=== PATIENT | female | born 1975 | race Caucasian/White ===

== ENCOUNTER 2021-12-02 14:59 | Outpatient (REF) | payer OTHER, SELFPAY ==
[2021-12-02 16:36] LABS: Syphilis Screen Nonreactive (Nonreactive)
[2021-12-03 05:17] LABS: HBc Num1 0.13 S/CO (0.00-0.79); HIV AB/AG Nonreactive (Nonreactive); HIV Num 1 0.07 S/CO (0.00-0.99); Hepatitis B Core Antibody Nonreactive (Nonreactive); ~HepC Num1 0.12 S/CO (0.00-0.79); ~Hepatitis C Antibody Nonreactive (Nonreactive)
[2021-12-03 06:23] LABS: CT PCR NOT DETECTED (Not Detect.); NG PCR NOT DETECTED (Not Detect.)
[2021-12-05 12:02] LABS: HPV mRNA E6/E7 rflx Not Detected (Not Detected)
== END 2021-12-02 15:00 | disposition home or self-care (01) ==
LOC: HO.LAB 14:59
PROVIDERS: Visit Provider Advanced Practice Midwife
DX: Z01.419 Encounter for gynecological examination (general) (routine) without abnormal findings (principal); Z20.2 Contact with and (suspected) exposure to infections with a predominantly sexual mode of transmission
CPT/HCPCS: 86704; 86780; 86803; 87389; 87491; 87591; 87624; 88142

== ENCOUNTER → 2022-02-22 13:32 | Outpatient (BNVA) | payer OTHER, SELFPAY | PROVIDERS: PCP Family Medicine; Visit Provider Dietitian, Registered | DX: E66.9 Obesity, unspecified (principal) | CPT/HCPCS: 97802 ==

== ENCOUNTER → 2023-03-07 09:53 | Outpatient (BNVA) | payer OTHER, SELFPAY | PROVIDERS: PCP Family Medicine; Visit Provider Physician Assistant ==

== ENCOUNTER 2023-03-23 15:03 | Outpatient (AMB) | payer OTHER, SELFPAY ==
--- NOTE | 2023-03-23 15:09 | A.OFFVIS_ITS ---
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 She heard about our program from her sister. Her goal is to lose weight and achieve a healthy lifestyle as well as to improve, if not resolve, obesity related medical conditions, including possible sleep apnea. She reports first being concerned about her weight 5 years, highest weight to date was 247. Current weight is 247.2 pounds with a BMI of 39.9. She has tried multiple methods of weight loss including fad diets without permanent results. She lives with her mom, alysia and two kids. 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 She states that she is scheduled for a sleep study through [facility] on 04/11/2023 She wakes at:?6 am, and goes to bed at?10 pm. Dinner is at 6 pm. Breakfast: coffee, milk/cream/sugar AM snack: granola bar, candy, chocolate, gummy bears Lunch: fast food PM snack: same as am snack Dinner: rice and beans, chicken or pork, or fast food After dinner: ice cream, cookies, Other snacks: as above Liquids: 30-40 oz water daily, 20 oz diet coke 3-4 days per week, no juice Alcohol/marijuana/tobacco intake: none Exercise: none, has gym membership at [facility] GERD score: 15 DEREK score: 7 ESS score: 21 QOL score: 98 [facility] Medical History Acid reflux Migraine headache Obesity Asthma Surgical History Hx laparoscopic cholecystectomy Family History Mother Liver cancer Hypertension Maternal Grandmother Hypertension Diabetes Social History Patient Tobacco Use Status: Never used Tobacco Current occupational status: employed 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 [employer] Female Reproductive History Menstrual Age of Menarche: 17 Review of Systems Const All systems reviewed & are unremarkable except as noted in HPI and below Physical Exam Vital Signs: Last Vital Signs Temp 96.7 F L 03/23/23 15:15 Pulse 93 03/23/23 15:15 BP 145/81 H 03/23/23 15:15 Pulse Ox 93 03/23/23 15:15 Oxygen Delivery Method Room Air 03/23/23 15:15 BMI result Body Mass Index 39.9 Const General: cooperative, healthy appearing and no acute distress Orientation/consciousness: patient oriented x3 HEENT Head: Yes normal to inspection Ears: hearing grossly normal bilaterally General nose exam: Normal external nose present Face and sinus: Yes normal facial exam Eyes General: appearance normal, both eyes and all related structures Resp Effort & Inspection: normal respiratory effort Auscultation: clear to auscultation bilaterally Cardio Rate: regular rate Rhythm: regular rhythm Heart sounds: S1 normal heart sound present and S2 normal heart sound present GI Inspection: Yes normal to inspection, No distended and Yes obesity Palpation (GI): Soft to palpation, nontender and no guarding Auscultation: normal bowel sounds Skin General skin exam: no rashes or lesions noted Neuro General: patient oriented x3 Extrem General: Yes edema (trace) Psych Appearance: grossly normal Mental Status: mental status grossly normal Speech and movement: Normal speech and movement present Affect: normal affect Attitude: cooperative Assessment & Plan Assessment & Plan (1) Obesity (BMI 35.0-39.9 without comorbidity): Code(s): E66.9 - Obesity, unspecified Plan: This is a?47 yo female who will start our SWL program to prepare for bariatric surgery.? Blood work, h pylori , CXR, ECG, Abd US and UGI have been ordered. She is being scheduled for RD and BH initial consultations. She will start SWL classes and watch the first three videos before her next appointment. ? Adequate sleep of 7-8 hours per night discussed, awakening at 6 am and going to bed at 10 pm ? Purchase body composition analyzer scale (Renpho recommended) and check weight weekly. The best time to do this is first thing in the morning after going to the bathroom. 1. Nutritional counseling: Be sure to careful read the number of scoops per shake Start with 2 Celebrate Rebuild shakes ([facility] [employer], [employer], [employer]) First shake (2 scoops in 16 oz unsweetened almond milk) at 7am-9am, Second shake (1.5 scoops in 16 oz unsweetened almond milk) at 10am-12pm 2 protein bars (uMentionedebrate bars at [facility] [employer], [employer], [employer]) First bar at 2pm-4pm. Dinner at 6pm (9 forks of protein and 9 forks of salad/vegetables). Meal to include lean meat (beef, fish, pork, turkey, chicken), cooked vegetables or a salad with olive oil and/or fruits (berries, pears, apples, kiwi). Avoid salt, breads, potatoes, rice, pasta, desserts. Another bar at 7pm-9pm. Try to drink 64 oz of water daily and avoid soda and juices. ?2. Each shake would be drunk slowly, like coffee in a period of 2 hours. ?3. Cut each bar in 4 pieces and eat each piece in 30 min ?to make each bar last 2 hours. ?4. I emphasized the importance of measuring accurately the food portion and measure it carefully when serving the food on the plate ?5. The meal portions include 9 full-size forks of meat and 9 full-size forks of salad. You always eat the meat portion but you can replace up to half of the forks of salad/vegetables with rice, potatoes or pasta, or a fruit ?if you like. The less you do it the better weight loss will be. ?6. One full-size fork is what can be scooped on the fork without falling aside and not what can be bit with the fork. Use regular forks like those you find in a typical restaurant. ?7.? Please send me weight measurements as soon as possible and then once a week. Always include your diet and exercise plan. Alternatively come weekly at the office for weight checks and send me the measurements. ?8. Exercise counseling: Begin by watching a stretching for beginners video. Start slowly and begin to stretch your muscles. You should do this before and after each exercise session to prevent injury. Please return to [facility] gym near your home. Ask the manager of training and development or one of the trainers how to use the machines if you are unfamiliar with them. Start elliptical with a resistance of 2. Increase resistance by 1 every 3 min to your most comfortable resistance with a max resistance of 8. Reduce the resistance by 1 every 3 minutes back down to 2 and repeat cycles for 300 calories. Alternatively, start treadmill with a speed of 3.0 and incline of 0, increasing incline by 1 every 3 minutes to the highest comfortable level (max 6 for now) then decrease in the same fashion. Repeat process to a goal of 300 calories. Goal of 2000 calories burned or more weekly. You may also consider use of the stationary bike. The easiest would be to chose the fat-burn or interval training program on the machine and do this until you reach the 300 calorie goal. Alternatively, you can manually adjust the resistance in a similar fashion as mentioned above, (resistance of 2-8 with a goal speed of 12 mph). Tracking calories is essential. 9. Alternatively start walking outside daily, tracking calories with a goal of 300 calories per day, daily. You can download the gabi [employer] which can track your time, distance and calories while walking outside. You press start in the gabi when you start and then stop when you are finished. 10.? It is important to avoid for at least 18 months postoperatively and it has been discussed at the information session 11. Please get labs, EKG and chest X-Ray within 1 week. 12. Discussed and answered all questions regarding?obtained consent to participate in the [facility]Registry. 13. Please follow the diet plan exactly, without any change. If you do not like something about the plan or you feel hungry, you need to communicate with me so I can help you revise the plan. You should not change the plan yourself. Text me at [phone] 14. Goal is to lose at least 12 pounds in the first month 15. Goal is to lose 10% of your weight before surgery, which is about 24 lbs. Ultimate weight goal: 223 lbs before surgery 16. Please be sure to have your sleep study sent to our office, the fax number is [phone] Patient is morbidly obese and is not considered stable at this time.?I spent a total of 70 minutes reviewing/updating records, examining the patient and counseling the patient on weight management as detailed above. Orders: Orders Insulin Today E66.9 - Obesity, unspecified Hemoglobin A1c Today E66.9 - Obesity, unspecified Comprehensive Met. Panel Today E66.9 - Obesity, unspecified Vitamin B12 and Folate Today E66.9 - Obesity, unspecified Zinc Today E66.9 - Obesity, unspecified C Reactive Protein Today E66.9 - Obesity, unspecified Vitamin B1 Today E66.9 - Obesity, unspecified Vitamin A Today E66.9 - Obesity, unspecified TSH reflex Free T4 Today E66.9 - Obesity, unspecified US abdomen comp w elastography Today E66.9 - Obesity, unspecified H Pylori Breath Test Today E66.9 - Obesity, unspecified Complete Blood Count Auto Diff Today E66.9 - Obesity, unspecified Lipid Panel Today E66.9 - Obesity, unspecified IRON PROFILE Today E66.9 - Obesity, unspecified Ferritin Today E66.9 - Obesity, unspecified Vitamin D 25-OH Total Today E66.9 - Obesity, unspecified XR chest 2V Today E66.9 - Obesity, unspecified ECG 12 lead EKG Today E66.9 - Obesity, unspecified FL upper GI w air Today E66.9 - Obesity, unspecified Referrals Nutrition/Dietitian Referral E66.9 - Obesity, unspecified Behavioral Health Referral E66.9 - Obesity, unspecified Coding Level of Care Code New Pt Level 5 (76007) Diagnoses Obesity (BMI 35.0-39.9 without comorbidity) E66.9 Time Spent (min) 70
[2023-03-23 15:15] VITALS: BP 145/81; PULSE 93; TEMP 35.9; O2SAT 93; BMI 39.9
== END 2023-03-23 16:38 | disposition home or self-care (01) ==
PROVIDERS: PCP Family Medicine; Visit Provider Physician Assistant Surgical
DX: E66.9 Obesity, unspecified (principal); Z68.39 Body mass index [BMI] 39.0-39.9, adult
CPT/HCPCS: 99205

== ENCOUNTER → 2023-03-23 15:03 | Outpatient (BNVA) | payer OTHER, SELFPAY | PROVIDERS: PCP Family Medicine; Visit Provider Physician Assistant Surgical ==

== ENCOUNTER 2023-04-18 15:04 | Outpatient (AMB) | payer OTHER, SELFPAY ==
--- NOTE | 2023-04-18 15:40 | A.OFFWM_ITS ---
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 She reported that she does not feel comfortable, easily fatigued, sleep is poor. She is currently not in therapy but was years ago during her divorce did not find it very helpful. Pt has no history of problems with drugs or alcohol. She has no history of inpatient psychiatric admissions. Pt reported history of depression and anxiety also being on medication for them in the past. Presenting Concerns Referral Source provider Reason for referral weight loss surgery evaluation Precipitating Event obesity Living Situation Current Living Situation Own At risk of losing current housing? No Satisfied with current living situation? Yes Comments Pt lives in her own home, her mother is there with her, 27, 26, 25, 19 year old niece lives there as well. Food/Weight/Diet Expectations of change weight loss and maintenance History/Relationship with food Pt stated that she eats when she is happy and also when she is sad. She reported that she loves sweets , ice cream, soda, fast food, taco river or [employer] for lunch, dinner would be [place] food. Often would overeat, feel uncomfortably full, eating again after she had just eat, eat two dinners. History/Relationship with weight She reported that she has gained 50 lbs over the past 5 years. History/Relationship with dieting keto, low carb Binge Eating Do you frequently eat large amounts of food in short periods of time, not feeling physically hungry? No Do you feel out of control when you eat a large amount of food in a short period of time? Yes Do you eat large amounts of food rapidly and typically alone? Yes Night Eating Do you wake up at least once during the night to eat? No If you wake up in the night, do you find that it is necessary to eat something in order to fall back asleep? No Do you have little or no appetite in the morning and feel very hungry in the evening, often overeating between dinner and when you go to bed? No Social History Family history and relationship Patient when her kid were 5, 2, and 3 a nd she has been since 2016. 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 Developmental history and status no issues Social support family Community support nondenominational Muslim/Spirituality Mormon Cultural/Ethnic information Legal Involvement and History Current or historical involvement with the legal system? none Education Highest grade completed 8th grade then GED then MA certification Preferred learning style Auditory, Verbal, Written, Learn by doing and Visual Currently enrolled in educational program? No Interested in further educational program? 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 No Financial Situation Financial assistance? None Service Service? No Mental Health and Addiction Treatment Current/Past substance abuse? No Current/Past addictive behavior concerns? No Medical and Physical Health Summary Physical exam in the last year? Yes Pain Screening Current pain? Yes Pain in the last few months? No Medications Is the patient compliant with medications? Yes Does the patient have Brock Guardian in place? Not applicable Does the patient use complimentary health approaches? No Trauma/Abuse History History of trauma? Yes Questionnaires PHQ-9 Over the last 2 weeks, how often have you been bothered by any of the following problems? 1. Little interest or pleasure in doing things: more than half the days 2. Feeling down, depressed, or hopeless: more than half the days 3. Trouble falling or staying asleep, or sleeping too much: nearly every day 4. Feeling tired or having little energy: nearly every day 5. Poor appetite or overeating: nearly every day 6. Feeling bad about yourself - or that you are a failure or have let yourself or your family down: more than half the days 7. Trouble concentrating on things, such as reading the newspaper or watching television: several days 8. Moving or speaking so slowly that other people could have noticed. Or the opposite - being so fidgety or restless that you have been moving around a lot more than usual: not at all 9. Thoughts that you would be better off or of hurting yourself in some way: not at all Total score: 16 Depression Screening Interpretation: Positive Depression Screening Done: Yes Source: Developed by Drs. Marcelino Pope, Oly Rogers, Elias More and colleagues, with an educational kami from [email or web address]. Binge Eating Scale Group 1 A. I don't feel self-conscious about my wt. or body size when I'm with others. B. I feel concerned about how I look to others, but it normally does not make me fell disappointed with myself C. I do get self-conscious about my appearance and wt. which makes me feel disappointed in myself. D. I feel very self-conscious about my wt. and frequently I feel intense shame and disgust for myself. I try to avoid social contacts because of my self- consciousness. Response Group 1: C Group 2 A. I don't have any difficulty eating slowly in the proper manner. B. Although I seem to gobble down foods, I don't end up feeling stuffed because of eating to much. C. At times, I tend to eat quickly and then, I feel uncomfortably full afterwards. D. I have the habit of bolting down my food, without really chewing it. When this happens I usually feel uncomfortably stuffed because I've eaten to much. Response Group 2: C Group 3 A. I feel capable to control my eating urges when I want to. B. I feel like I have failed to control my eating more than the average person. C. I feel utterly helpless when it comes to feeling in control of my eating urges. D. Because I feel so helpless about controlling my eating I have become very desperate about trying to get control. Response Group 3: B Group 4 A. I don't have the habit of eating when I'm bored. B. I sometimes eat when I'm bored, but often I'm able to get busy and get my mind off food. C. I have a regular habit of eating when I'm bored, but occasionally, I can use some other activity to get my mind off eating. D. I have a strong habit of eating when I'm bored. Nothing seems to help me breath the habit. Response Group 4: C Group 5 A. I'm usually physically hungry when I eat something. B. Occasionally, I eat something on impulse even though I really am not hungry. C. I have the regular habit of eating foods, that I might not really enjoy, to satisfy a hungry feeling even though physically, I don't need the food. D. Although I'm not physically hungry, I get a hungry feeling in my mouth that only seems to be satisfied when I eat a food, like sandwich, that fills my mouth. Sometimes, when I eat the food to satisfy my mouth hunger, I then spit the food out so I won't gain weight. Response Group 5: B Group 6 A. I don't feel any guilt or self-hate after I overeat. B. After I overeat, occasionally I feel guilt or self-hate. C. Almost all the time I experience strong guilt or self-hate after I overeat. Response Group 6: C Group 7 A. I don't lose total control of my eating when dieting even after periods when I overeat. B. Sometimes when I eat a forbidden food on a diet, I feel like I blew it and eat even more. C. Frequently, I have the habit of saying to myself, I've blown it now, why not go all the way, when I overeat on a diet. When that happens I eat more. D. I have a regular habit of starting a strict diets for myself but I break the diets by going on an eating binge. My life seems to be either a feast or famine. Response Group 7: C Group 8 A. I rarely eat so much food that I feel uncomfortably stuffed afterwards. B. Usually about once a month, I each such a quantity of food, I end up feeling very stuffed. C. I have regular periods during the month when I eat large amounts of food, either at mealtime or at snacks. D. I eat so much food that I regularly feel quite uncomfortable after eating and sometimes a bit nauseous. Response Group 8: C Group 9 A. My level of calorie intake does not go up very high or go down very low on a regular basis. B. Sometimes after I overeat, I will try to reduce my caloric intake to almost nothing to compensate for the excess calories I've eaten. C. I have a regular habit of overeating during the night. It seems that my routine is not to be hungry in the morning but overeat in the evening. D. In my adult years, I have had week-long periods where I practically starve myself. This follows periods when I overeat. It seems I live a life of either feast or famine. Response Group 9: A Group 10 A. I usually am able to stop eating when I want to. I know when enough is enough. B. Every so often, I experience a compulsion to eat which I can't seem to control. C. Frequently, I experience strong urges to eat which I seem unable to control, but at other times I can control my eating urges. D. I feel incapable of controlling urges to eat. I have a fear of not being able to stop eating voluntarily. Response Group 10: A Group 11 A. I don't have any problem stopping eating when I feel full. B. I usually can stop eating when I feel full but occasionally overeat leaving me feeling uncomfortably stuffed. C. I have a problem stopping eating once I start and usually I feel uncomfortably stuffed after I eat a meal. D. Because I have a problem not being able to stop eating when I want, I sometimes have to induce vomiting to relieve my stuffed feeling. Response Group 11: B Group 12 A. I seem to eat just as much when I'm with others, Family social gatherings as when I'm by myself. B. Sometimes, when I'm with other persons, I don't eat as much as I want to eat because I'm self-conscious about my eating. C. Frequently, I eat only a small amount of food when others are present, because I'm very embarrassed about my eating. D. I feel so ashamed about overeating that I pick times to overeat when I know no one will see me. I feel like a closet eater. Response Group 12: B Group 13 A. I eat three meals a day with only an occasional between meal snack. B. I eat 3 meals a day, but I also normally snack between meals. C. When I am snacking heavily, I get in the habit of skipping regular meals. D. There are regular periods when I seem to be continually eating, with no planned meals. Response Group 13: B Group 14 A. I don't think much about trying to control unwanted eating urges. B. At least some of the time, I feel my thoughts are pre-occupied with trying to control my eating urges. C. I feel that frequently I spend much time thinking about how much I ate or about trying not to eat anymore. D. It seems to me that most of my waking hours are pre-occupied by thoughts about eating or not eating. I feel like I'm constantly struggling not to eat. Response Group 14: B Group 15 A. I don't think about food a great deal. B. I have strong craving for food but they last only for brief periods of time. C. I have days when I can't seem to think about anything else but food. D. Most of my days seem to be pre-occupied with thoughts about food. I feel like I live to eat. Response Group 15: B Group 16 A. I usually know whether or not I'm physically hungry. I take the right portion of food to satisfy me. B. Occasionally, I feel uncertain about knowing whether or not I'm physically hungry. A these times it's hard to know how much food I should take to satisfy me. C. Even though I might know how many calories I should eat, I don't have any idea what is a normal amount of food for me. Response Group 16: C Binge Eating Score: 21 Score less than 17 Minimal Risk Score between 18-26 Moderate Risk Score between 27-46 High Risk Assessment & Plan Assessment & Plan (1) Depression, unspecified: Code(s): F32.A - Depression, unspecified (2) Obesity (BMI 35.0-39.9 without comorbidity): Code(s): E66.9 - Obesity, unspecified Plan Patient reported symptoms of depressions and emotional eating. depression is compounded by her weight issues, also suppressed emotions/unresolved trauma. She would like to be seen again. Coding Level of Care Code Tele [facility] Dia Anne ([id number]) Diagnoses Depression, unspecified F32.A Obesity (BMI 35.0-39.9 without comorbidity) E66.9 Time Spent (min) 45
== END 2023-04-18 16:24 | disposition home or self-care (01) ==
PROVIDERS: PCP Family Medicine; Visit Provider Counselor Mental Health
DX: F32.A Depression, unspecified (principal); E66.9 Obesity, unspecified
CPT/HCPCS: 90791

== ENCOUNTER → 2023-04-18 15:04 | Outpatient (BNVA) | payer OTHER, SELFPAY | PROVIDERS: PCP Family Medicine; Visit Provider Counselor Mental Health ==

== ENCOUNTER 2023-05-09 11:17 | Outpatient (AMB) | payer OTHER, SELFPAY ==
--- NOTE | 2023-05-09 11:59 | A.OFFWM_ITS ---
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 Pt is looking to have weight loss surgery, to help improve her health and quality of life. She reported that she does not feel comfortable, easily fatigued, sleep is poor. She is currently not in therapy but was years ago during her divorce did not find it very helpful. Pt has no history of problems with drugs or alcohol. She has no history of inpatient psychiatric admissions. Pt reported history of depression and anxiety also being on medication for them in the past. Presenting Concerns Referral Source provider Reason for referral weight loss surgery evaluation Precipitating Event obesity Living Situation Current Living Situation Own At risk of losing current housing? No Satisfied with current living situation? Yes Comments Pt lives in her own home, her mother is there with her, 27, 26, 25, 19 year old niece lives there as well. Food/Weight/Diet Expectations of change weight loss and maintenance History/Relationship with food Pt stated that she eats when she is happy and also when she is sad. She reported that she loves sweets , ice cream, soda, fast food, taco river or Tuttle's for lunch, dinner would be [place]wana food. Often would overeat, feel uncomfortably full, eating again after she had just eat, eat two dinners. History/Relationship with weight She reported that she has gained 50 lbs over the past 5 years. History/Relationship with dieting keto, low carb Binge Eating Do you frequently eat large amounts of food in short periods of time, not feeling physically hungry? No Do you feel out of control when you eat a large amount of food in a short period of time? Yes Do you eat large amounts of food rapidly and typically alone? Yes Night Eating Do you wake up at least once during the night to eat? No If you wake up in the night, do you find that it is necessary to eat something in order to fall back asleep? No Do you have little or no appetite in the morning and feel very hungry in the evening, often overeating between dinner and when you go to bed? No Social History Family history and relationship Patient when her kid were 5, 2, and 3 and she has been since 2016. Parental/Familial home school teacher obligations her mother lives with her. Developmental history and status no issues Social support family Community support jehovah's witness Lutheran/Spirituality Catholic Cultural/Ethnic information Legal Involvement and History Current or historical involvement with the legal system? none Education0 Highest grade completed 8th grade then GED then MA certification Preferred learning style Auditory, Verbal, Written, Learn by doing and Visual Currently enrolled in educational program? No Interested in further educational program? 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 No Financial Situation Financial assistance? None Service Service? No Mental Health and Addiction Treatment Current/Past substance abuse? No Current/Past addictive behavior concerns? No Medical and Physical Health Summary Physical exam in the last year? Yes Pain Screening Current pain? Yes Pain in the last few months? No Medications Is the patient compliant with medications? Yes Does the patient have Brock Guardian in place? Not applicable Does the patient use complimentary health approaches? No Trauma/Abuse History History of trauma? Yes Questionnaires PHQ-9 Over the last 2 weeks, how often have you been bothered by any of the following problems? 1. Little interest or pleasure in doing things: nearly every day 2. Feeling down, depressed, or hopeless: more than half the days 3. Trouble falling or staying asleep, or sleeping too much: nearly every day 4. Feeling tired or having little energy: nearly every day 5. Poor appetite or overeating: several days 6. Feeling bad about yourself - or that you are a failure or have let yourself or your family down: nearly every day 7. Trouble concentrating on things, such as reading the newspaper or watching television: more than half the days 8. Moving or speaking so slowly that other people could have noticed. Or the opposite - being so fidgety or restless that you have been moving around a lot more than usual: several days 9. Thoughts that you would be better off or of hurting yourself in some way: not at all Total score: 18 Source: Developed by Drs. Marcelino Pope, Oly Rogers, Elias More and colleagues, with an educational kami from [employer]. Assessment & Plan Assessment & Plan (1) Depression, unspecified: Code(s): F32.A - Depression, unspecified (2) Obesity (BMI 35.0-39.9 without comorbidity): Code(s): E66.9 - Obesity, unspecified Plan Patient reported symptoms of depressions and emotional eating. depression is compounded by her weight issues, also suppressed emotions/unresolved trauma. She would like to be seen again. Coding Level of Care Code Tele Psytx 45 mins (19907) Diagnoses Depression, unspecified F32.A Obesity (BMI 35.0-39.9 without comorbidity) E66.9 Time Spent (min) 40
== END 2023-05-21 15:34 | disposition home or self-care (01) ==
PROVIDERS: PCP Family Medicine; Visit Provider Counselor Mental Health
DX: F32.A Depression, unspecified (principal); E66.9 Obesity, unspecified
CPT/HCPCS: 90834

== ENCOUNTER → 2023-05-09 11:17 | Outpatient (BNVA) | payer OTHER, SELFPAY | PROVIDERS: PCP Family Medicine; Visit Provider Counselor Mental Health ==

== ENCOUNTER 2023-05-16 10:25 | Outpatient (AMB) | payer OTHER, SELFPAY ==
--- NOTE | 2023-05-16 10:28 | MHC.OFFVISWM ---
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: No Allergies Environmental Allergy (Unknown, Uncoded 03/07/23 10:46) per allergy testing shrimp Allergy (Unknown, Uncoded 03/07/23 10:46) anaphylaxis Medication List - Last Reconciled 05/16/23 by MORGAN Solitario albuterol sulfate 90 mcg/actuation (ProAir HFA) inhalation amitriptyline 25 mg PO BEDTIME famotidine 20 mg PO BID levocetirizine 5 mg PO DAILY montelukast 10 mg PO DAILY omeprazole 20 mg PO DAILY sumatriptan succinate mg PO HPI HPI Comments History of Present Illness Details The patient is a pleasant 47 year old female who returns to the clinic for pre-operative surgical weight loss management. They were last seen in the office on 03/23/2023 for her initial visit, recorded weight at that time was 247.2 pounds, with a BMI of 39.9. Today's weight is 241.2 pounds and BMI is 38.9. There has been a weight loss of 6 pounds since initiating the surgical weight loss program on 03/23/2023 with a total body weight loss of 2.4 %. Pre op work up completed as follows: SWL classes:? 11/09 BH appts: Has follow-up on 05/30/2023? ? RD appts: Missed 04/11/2023 Labs: Not yet done H. pylori: Not yet done CXR: Not yet done EKG: Not yet done ABD U/S: Missed 05/02/2023 due to migraine UGI: 06/08/2023 The patient reports she has been having difficulty with the meal plan, only doing 1 shake.. The patient does have a body composition scale. They also have not been communicating weekly because she has been under more stress. She called a therapist to begin talking to them. She is only doing 1 shake 2 scoops daily, then salad w chicken or salmon. Not doing any bars. Not measuring her food. Current meal plan includes: 2 Celebrate Rebuild shakes ([facility] [employer], [employer], [employer]) First shake (2 scoops in 16 oz unsweetened almond milk) at 7am-9am, Second shake (1.5 scoops in 16 oz unsweetened almond milk) at 10am-12pm 2 protein bars ([employer] bars at [facility] [employer], [employer], [employer]) First bar at 2pm-4pm. Dinner at 6pm (9 forks of protein and 9 forks of salad/vegetables). Another bar at 7pm-9pm. Drinking 48-64 oz of water Current exercise plan includes: [employer], joined tuesday, but not yet exercising. 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 Reproductive History Menstrual Age of Menarche: 17 Review of Systems Const All systems reviewed & are unremarkable except as noted in HPI and below Physical Exam Const General: healthy appearing and no acute distress Resp Effort & Inspection: normal respiratory effort Auscultation: clear to auscultation bilaterally Cardio Rate: regular rate Rhythm: regular rhythm GI Auscultation: normal bowel sounds Extrem General: Yes normal to inspection Assessment & Plan Assessment & Plan (1) Obesity (BMI 35.0-39.9 without comorbidity): Code(s): E66.9 - Obesity, unspecified Plan: Discussed the importance of following the meal plan exactly or texting with any concerns so that I can change the plan for her. Discussed he importance of texting weekly. Discussed the importance of exercise. She is going to try to reach commit to the meal plan and exercise plan. She will return to the office in approximately 3-4 weeks. We have rescheduled her appointment with Daly. She states that she had an abdominal ultrasound done in March through her primary care physician and she will text us that data. She was additionally encouraged to get labs, chest x-ray, EKG. Coding Level of Care Code Est Pt Level 3 (72189) Diagnoses Obesity (BMI 35.0-39.9 without comorbidity) E66.9
[2023-05-16 10:37] VITALS: BP 146/92; PULSE 109; TEMP 36.8; O2SAT 95; BMI 38.9
== END 2023-05-16 11:01 | disposition home or self-care (01) ==
PROVIDERS: PCP Family Medicine; Visit Provider Physician Assistant Surgical
DX: E66.9 Obesity, unspecified (principal); Z68.38 Body mass index [BMI] 38.0-38.9, adult
CPT/HCPCS: 99213

== ENCOUNTER → 2023-05-16 10:25 | Outpatient (BNVA) | payer OTHER, SELFPAY | PROVIDERS: PCP Family Medicine; Visit Provider Physician Assistant Surgical ==

== ENCOUNTER 2023-05-30 11:21 | Outpatient (AMB) | payer OTHER, SELFPAY ==
--- NOTE | 2023-05-30 11:22 | A.OFFWM_ITS ---
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 Is struggling to get enough exercise and has poor quality sleep. low motivation. Pt reported that she has been struggling, also looking for outside mental health tx however has been hard to find. Pt is looking to have weight loss surgery, to help improve her health and quality of life. She reported that she does not feel comfortable, easily fatigued, sleep is poor. She is currently not in therapy but was years ago during her divorce did not find it very helpful. Pt has no history of problems with drugs or alcohol. She has no history of inpatient psychiatric admissions. Pt reported history of depression and anxiety also being on medication for them in the past. Presenting Concerns Referral Source provider Reason for referral weight loss surgery evaluation Precipitating Event obesity Living Situation Current Living Situation Own At risk of losing current housing? No Satisfied with current living situation? Yes Comments Pt lives in her own home, her mother is there with her, 27, 26, 25, 19 year old niece lives there as well. Food/Weight/Diet Expectations of change weight loss and maintenance History/Relationship with food Pt stated that she eats when she is happy and also when she is sad. She reported that she loves sweets , ice cream, soda, fast food, taco river or Tuttle's for lunch, dinner would be Occitan food. Often would overeat, feel uncomfortably full, eating again after she had just eat, eat two dinners. History/Relationship with weight She reported that she has gained 50 lbs over the past 5 years. History/Relationship with dieting keto, low carb Binge Eating Do you frequently eat large amounts of food in short periods of time, not feeling physically hungry? No Do you feel out of control when you eat a large amount of food in a short perio d of time? Yes Do you eat large amounts of food rapidly and typically alone? Yes Night Eating Do you wake up at least once during the night to eat? No If you wake up in the night, do you find that it is necessary to eat something in order to fall back asleep? No Do you have little or no appetite in the morning and feel very hungry in the evening, often overeating between dinner and when you go to bed? No Social History Family history and relationship Patient when her kid were 5, 2, and 3 and she has been since 2016. Parental/Familial vice president quality assurance obligations her mother lives with her. Developmental history and status no issues Social support family Community support denominational Bahai/Spirituality Holiness Cultural/Ethnic information Legal Involvement and History Current or historical involvement with the legal system? none Education Highest grade completed 8th grade then GED then MA certification Preferred learning style Auditory, Verbal, Written, Learn by doing and Visual Currently enrolled in educational program? No Interested in further educational program? 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 No Meaningful activities going for walks Financial Situation Describe current financial situation Occasional struggle Financial assistance? None Service Service? No Mental Health and Addiction Treatment Current/Past substance abuse? No Current/Past addictive behavior concerns? No Medical and Physical Health Summary Physical exam in the last year? Yes Pain Screening Current pain? Yes Pain in the last few months? No Medications Is the patient compliant with medications? Yes Does the patient have Brock Guardian in place? Not applicable Does the patient use complimentary health approaches? No Trauma/Abuse History History of trauma? Yes Assessment & Plan Assessment & Plan (1) Depression, unspecified: Code(s): F32.A - Depression, unspecified Plan Patient reported symptoms of depressions and emotional eating. depression is compounded by her weight issues, also suppressed emotions/unresolved trauma. She was recently started on medication for depression for her doctor. She has been struggling in the program with consistency and weight loss. She will be seen again. Telehealth Telehealth Location of provider rendering services: practice address Location of patient: address on file Patient Identification confirmed using: Name, : Yes Telehealth method: voice only Patient verbally consented to treatment: Yes Patient verbally consented to billing insurance company: Yes Patient informed of any privacy concerns related to visit: Yes Minutes spent on Phone/Video with Pt.: 30 Coding Level of Care Code Tele Psytx 30 mins (94104) Diagnoses Depression, unspecified F32.A Time Spent (min) 30
== END 2023-05-30 11:47 | disposition home or self-care (01) ==
LOC: HO.HBST 11:21
PROVIDERS: PCP Family Medicine; Visit Provider Counselor Mental Health
DX: F32.A Depression, unspecified (principal)
CPT/HCPCS: 90832

== ENCOUNTER 2023-05-30 11:21 | Outpatient (REF) | payer OTHER, SELFPAY | END 2023-05-30 11:22 | disposition home or self-care (01) | LOC: HO.LNP 11:21 | PROVIDERS: PCP Family Medicine; Visit Provider Counselor Mental Health | DX: Z13.89 Encounter for screening for other disorder (principal) ==

== ENCOUNTER 2023-05-30 12:15 | Outpatient (AMB) | payer OTHER, SELFPAY ==
--- NOTE | 2023-05-30 12:55 | A.OFFVIS_ITS ---
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 Complaining of irregular menstrual cycles preop Last Pap/HPV was negative in 12/24 Last Mammogram was done in 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 Reproductive History Menstrual Age of Menarche: 17 Date of last menstrual period: 05/24/23 Total pregnancies: 3 Full term: 3 Number of Living Children: 3 History of abnormal pap smear: No History of STI: No Date of Mammogram: 05/16/23 Review of Systems Const All systems reviewed & are unremarkable except as noted in HPI and below Card Reports as per HPI Resp Reports as per HPI GI Reports as per HPI and Reports no additional complaints Reports as per HPI Physical Exam Const General: cooperative, healthy appearing and comfortable Chest Chest palpation & inspection: normal inspection of the chest and normal palpation of entire chest wall Breast/axilla inspection: normal inspection of the breasts and normal inspection of the axillae Breast/axilla palpation: normal palpation of the breasts, normal palpation of the axillae and no axillary lymphadenopathy Resp Effort & Inspection: normal respiratory effort Auscultation: clear to auscultation bilaterally Percussion: percussion normal Cardio Palpation: normal PMI Rate: regular rate Rhythm: regular rhythm Heart sounds: no murmurs and no rubs Peripheral pulses: Peripheral pulses 2+ throughout GI Inspection: Yes normal to inspection Palpation (GI): Soft to palpation, nontender, no guarding, not rigid and No hepatosplenomegaly present Percussion: Yes normal to percussion Auscultation: normal bowel sounds Rectal Exam - Female: deferred General: Yes bladder normal to palpation External Female Exam: No lesion Speculum Exam - Vagina: normal appearance of the vagina, normal palpation, normal vaginal discharge and not erythematous Speculum Exam - Cervix: normal appearance of the cervix and normal palpation Bimanual exam- vagina & uterus: normal bimanual exam, normal palpation, uterine size normal, bladder normal to palpation, consistency normal and normal palpation Bimanual Exam- Adnexa, other: normal adnexae, no masses and no tenderness Assessment & Plan Assessment & Plan (1) Well woman exam: Code(s): Z01.419 - Encounter for gynecological examination (general) (routine) without abnormal findings Plan: Cotesting not indicated this year. Mammogram ordered. Referred the patient to GI for screening colonoscopy Counseled the patient about the recommended dietary allowance of 1000 mg of Calcium & 600 IU of vitamin D. The patient was instructed to perform monthly self-breast exams and to schedule an annual exam in a year; All questions answered and the patient verbalized understanding. Instructed the patient to schedule annual exam in a year (2) Abnormal uterine bleeding (AUB): Code(s): N93.9 - Abnormal uterine and vaginal bleeding, unspecified Plan: GC and chlamydia taken CBC, TSH, prolactin, HCG, and pelvic ultrasound ordered. Discussed with the patient the different causes of abnormal bleeding including thyroid disorders, uterine and ovarian pathology, endometrial hyperplasia, carcinoma and other potential causes. Discussed with the patient the work up including CBC (to r/o anemia), TSH, pelvic Ultrasound, endometrial biopsy to r/o endometrial pathology. All questions answered and the patient verbalized understanding. Instructed the patient to schedule an appointment for an endometrial biopsy in 2 weeks. Orders: Orders MM tomosynthesis screening BI Today Z12.31 - Encounter for screening mammogram for malignant neoplasm of breast Prolactin Today N93.9 - Abnormal uterine and vaginal bleeding, unspecified HCG Quantitative Today N93.9 - Abnormal uterine and vaginal bleeding, unspecified Complete Blood Count no Diff Today N93.9 - Abnormal uterine and vaginal bleeding, unspecified TSH reflex Free T4 Today N93.9 - Abnormal uterine and vaginal bleeding, unspecified US pelvic and transvaginal Today N93.9 - Abnormal uterine and vaginal bleeding, unspecified Referrals Gastroenterology Referral Z12.11 - Encounter for screening for malignant neoplasm of colon Coding Level of Care Code New Pt Prev Care 40-64y(05231) Diagnoses Well woman exam Z01.419 Abnormal uterine bleeding (AUB) N93.9
[2023-05-30 12:59] VITALS: BP 118/65; BMI 38.4
== END 2023-05-30 13:08 | disposition home or self-care (01) ==
LOC: HO.HWS 12:17
PROVIDERS: PCP Family Medicine; Visit Provider Obstetrics & Gynecology
DX: Z01.419 Encounter for gynecological examination (general) (routine) without abnormal findings (principal); N93.9 Abnormal uterine and vaginal bleeding, unspecified
CPT/HCPCS: 99386

== ENCOUNTER 2023-05-30 13:17 | Outpatient (REF) | payer OTHER, SELFPAY ==
[2023-05-30 14:19] LABS: Hematocrit 43.3 % (37.0-47.0); Mean Corpuscular HGB Conc 32.3 g/dl (31.0-35.0); Mean Corpuscular Hemoglobin 26.8 pg (27.0-33.0); Mean Platelet Volume 11.2 fL (9.4-12.3); Platelet Count 331 X10*3/uL (160-400); Red Blood Count 5.22 X10*6/uL (4.20-5.50); Red Cell Distribution Width 14.2 % (11.0-16.0); White Blood Count 8.4 X10*3/uL (4.8-10.8)
[2023-05-30 15:19] LABS: HCG Quantitative < 2 mIU/mL; TSH reflex Free T4 2.44 uIU/mL (0.32-4.0)
[2023-05-30 17:22] LABS: CT PCR NOT DETECTED (Not Detect.); NG PCR NOT DETECTED (Not Detect.)
[2023-05-31 20:19] LABS: Prolactin 4.8 ng/mL
== END 2023-05-30 13:18 | disposition home or self-care (01) ==
LOC: HO.LAB 13:17
PROVIDERS: Visit Provider Obstetrics & Gynecology
DX: N93.9 Abnormal uterine and vaginal bleeding, unspecified (principal); Z20.2 Contact with and (suspected) exposure to infections with a predominantly sexual mode of transmission
CPT/HCPCS: 0353U; 36415; 84146; 84443; 84702; 85027

== ENCOUNTER 2023-06-06 15:43 | Outpatient (AMB) | payer OTHER, SELFPAY ==
--- NOTE | 2023-06-06 15:37 | MHC.AMNUTRGE ---
Intake Intake Visit Reasons: VIDEO Initial Nutrition SWL Allergies Environmental Allergy (Unknown, Uncoded 05/30/23 13:01) per allergy testing shrimp Allergy (Unknown, Uncoded 05/30/23 13:01) anaphylaxis HPI Nutrition Presentation Reason for consult elevated BMI Diet Assmnt Details Pt reports she is struggling with using protein bars and shakes . She doesn't feel physically or mentally satisfied. She is not set on having bariatric surgery at this time, she speaks about the importance of following a sustainable nutrition plan. I supported patient autonomy today and encouraged she discuss with her provider her options. SWL online classes: none Pt met with Rafa MEIER 02/2022 Dietary counseling reduction Lifestyle Food frequency Grains/pasta/breads/cereal (carbs): daily, Meats/poultry/fish (protein): daily, Meat substitutes/nuts/seeds/legumes: daily, Water: daily, Soda: daily (diet), Juice: never and Coffee: daily Diagnosis Nutrition problem #1 overweight/obesity As related to (etiology) #1 excess energy intake and physical inactivity As evidenced by (sign/symptom) #1 high BMI Monitoring/Goals Nutrition problem monitoring total energy intake, level of knowledge/skill, total PRO intake, total CHO intake and weight Learning/Education Readiness to learn good Stages of change preparation Educational materials provided Yes Most Recent Diabetes Results: No Data to Display [facility] Medical History Acid reflux Migraine headache Obesity Asthma Surgical History Hx laparoscopic cholecystectomy Family History Mother Liver cancer Hypertension Maternal Grandmother Hypertension Diabetes Social History Alcohol intake: never Patient Tobacco Use Status: Never used Tobacco Current occupational status: employed 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 She is not sure if this is the right program for her and she will further discuss this with Nicanor. She will need to complete online classes and f/u for review Telehealth Telehealth Location of provider rendering services: practice address Location of patient: address on file Patient Identification confirmed using: Name, : Yes Telehealth method: voice only Patient verbally consented to treatment: Yes Patient verbally consented to billing insurance company: Yes Patient informed of any privacy concerns related to visit: Yes Minutes spent on Phone/Video with Pt.: 15 Coding Level of Care Code Nutr Indiv Intake (83444) Diagnoses Obesity (BMI 35.0-39.9 without comorbidity) E66.9 Time Spent (min) 15
== END 2023-06-06 16:00 | disposition home or self-care (01) ==
LOC: HO.HBS 15:43
PROVIDERS: PCP Family Medicine; Visit Provider Dietitian, Registered
DX: E66.9 Obesity, unspecified (principal)

== ENCOUNTER → 2023-06-06 15:43 | Outpatient (BNVA) | payer OTHER, SELFPAY | PROVIDERS: PCP Family Medicine; Visit Provider Dietitian, Registered | DX: E66.9 Obesity, unspecified (principal); Z71.3 Dietary counseling and surveillance | CPT/HCPCS: 97802 ==

== ENCOUNTER 2023-07-11 14:30 | Outpatient (REF) | payer OTHER, SELFPAY ==
--- NOTE | ~2023-07-11 | US_ITS ---
EXAMINATION: US PELVIS CLINICAL INFORMATION: Abnormal uterine and vaginal bleeding. The last menstrual period was on the month prior. COMPARISON: Pelvic ultrasound dated 07/04/2013. TECHNIQUE: Ultrasound of the pelvis is performed using both transabdominal and transvaginal transducers along with Doppler. Transvaginal imaging is performed due to inadequate visualization transabdominally. FINDINGS: Uterus: The uterus is retroverted and retroflexed. The uterus measures 10.6 x 4.3 x 3.7 cm. Nabothian cysts are seen within the cervix. The double wall endometrial thickness is mm. The uterus is smooth in contour and has normal myometrial echogenicity. No visible fibroid. Adnexa: Both ovaries are visualized. There is normal color flow to the adnexa. There is no ovarian torsion. There is no pelvic ascites or fluid collection. Right ovary measures 2.5 x 1.3 x 1.4 cm, volume 2.4 mL. Left ovary measures 4.3 x 2.5 x 2.8 cm, volume 15.7 mL. The left ovary contains a 2.6 cm in maximal diameter benign, simple follicle, for which no imaging follow-up is recommended. US/US pelvic and transvaginal IMPRESSION: Nabothian cysts are seen within the cervix. The examination is otherwise unremarkable.
== END 2023-07-11 14:31 | disposition home or self-care (01) ==
LOC: HO.US 14:30
PROVIDERS: PCP Family Medicine; Visit Provider Obstetrics & Gynecology
DX: N93.9 Abnormal uterine and vaginal bleeding, unspecified (principal)
CPT/HCPCS: 76830; 76856

== ENCOUNTER 2023-12-12 11:05 | Outpatient (AMB) | payer OTHER, SELFPAY ==
[2023-12-12 11:23] VITALS: BMI 39.5
--- NOTE | 2023-12-12 11:23 | MHC.OFFVIS ---
Vital Signs 12/12/23 11:23 Height 5 ft 6 in Weight 245 lb BMI 39.5 Intake Visit Reasons: Ultrasound Follow up Allergies Environmental Allergy (Unknown, Uncoded 05/30/23 13:01) per allergy testing shrimp Allergy (Unknown, Uncoded 05/30/23 13:01) anaphylaxis HPI Comments Details: Presenting for EMB [facility] Medical History Acid reflux Migraine headache Obesity Asthma Surgical History Hx laparoscopic cholecystectomy Family History Mother Liver cancer Hypertension Maternal Grandmother Hypertension Diabetes Social History Alcohol intake: never Patient Tobacco Use Status: Never used Tobacco Current occupational status: employed 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 [employer] Female Reproductive History Menstrual Age of Menarche: 17 Review of Systems Const All systems reviewed & are unremarkable except as noted in HPI and below Reports as per HPI and Reports no additional complaints GI Reports no additional complaints Reports no additional complaints Physical Exam Vital Signs: BMI result Body Mass Index 39.5 Office Procedures Endometrial Biopsy Details: The patient was counseled regarding the indication and benefits of endometrial sampling to rule out endometrial pathology including not limited to endometrial hyperplasia or endometrial cancer and others; The alternatives (Either do nothing vs. hysteroscopy D&C) & the risks were discussed with the patient including but not limited: pain, uterine perforation, bleeding, infection, possible injury to bladder, bowel, ureter, possible need for blood transfusion with all its possible risks. The patient verbalized understanding all questions answered and signed consent. Urine test done in the office was negative The patient was placed into the dorsal lithotomy position; a speculum was inserted in the vagina. Using aseptic technique for the procedure, the cervix was cleansed with Betadine. The anterior lip of the cervix was grasped with a single tooth tenaculum. The uterus was sounded to 7 cm with a 4 mm Pipelle was used. Tissues samples were obtained and placed in formalin, in a patient labeled container and sent to the pathology department. At the end of the procedure, there was minimal bleeding noted The patient tolerated the procedure well and was discharged in good condition with the following instructions: Nothing in the vagina until the bleeding stops. No sex until the bleeding stops, to call if any of the following occurs: fever (>100.4), flu-like symptoms, abdominal pain, heavy bleeding, four smelling vaginal discharge. The patient was instructed to schedule a Follow up appointment in 2 weeks to discuss pathology results of the biopsy and treatment options. This note was generated with a voice recognition program. Some errors may have been overlooked during the review of this note. Sometimes these errors may affect the content or meaning of a given sentence. [id number] Biopsy Results AMB Test Urine AMB Test Urine Negative Last Edit by January Donohue CMA on 12/12/23 11:36 Assessment & Plan Assessment & Plan (1) Abnormal uterine bleeding (AUB): Code(s): N93.9 - Abnormal uterine and vaginal bleeding, unspecified Category: Medical Plan: EMB done, see procedure note Orders: Orders AMB Endometrial Biopsy Today N93.9 - Abnormal uterine and vaginal bleeding, unspecified AMB HCG Urine Test Today Z32.02 - Encounter for test, result negative Coding Level of Care Code Procedure Only Diagnoses Abnormal uterine bleeding (AUB) N93.9 CPT Codes Endometrial Biopsy - CPT: 13203-Eyhckwihull Biopsy ([id number])
== END 2023-12-12 11:46 | disposition home or self-care (01) ==
PROVIDERS: PCP Family Medicine; Visit Provider Obstetrics & Gynecology
DX: N93.9 Abnormal uterine and vaginal bleeding, unspecified (principal); Z32.02 Encounter for pregnancy test, result negative
CPT/HCPCS: 58100

== ENCOUNTER 2023-12-12 11:05 | Outpatient (REF) | payer OTHER, SELFPAY | END 2023-12-12 11:06 | disposition home or self-care (01) | LOC: HO.LNP 11:05 | PROVIDERS: PCP Family Medicine; Visit Provider Obstetrics & Gynecology | DX: N93.9 Abnormal uterine and vaginal bleeding, unspecified (principal); Z32.02 Encounter for pregnancy test, result negative | CPT/HCPCS: 58100; 81025; 88305 ==

== ENCOUNTER 2024-02-06 11:52 | Outpatient (AMB) | payer OTHER, SELFPAY ==
[2024-02-06 11:55] VITALS: BP 130/88; BMI 39.5
--- NOTE | 2024-02-06 11:55 | A.OFFVIS_ITS ---
Vital Signs 02/06/24 11:55 Height 5 ft 6 in Weight 245 lb BMI 39.5 BP 130/88 Blood Pressure Location Lt brachial Position Sitting Intake Visit Reasons: EMB Results Allergies Environmental Allergy (Unknown, Uncoded 02/06/24 11:55) per allergy testing shrimp Allergy (Unknown, Uncoded 02/06/24 11:55) anaphylaxis HPI Comments Details: The patient is presenting for follow-up to discuss the results of her abnormal uterine bleeding workup and options of treatment. The following workup was done.: H&H= 14/43.3 TSH, hCG, GC and chlamydia were negative. Endometrial biopsy pathology showed the following: Endometrium, biopsy: Strips of inactive endometrium with stromal breakdown and tubal metaplasia; negative for atypia, hyperplasia or malignancy Co testing was done in 12/22 was negative. 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 Pelvic ultrasound showed the following: IMPRESSION: Nabothian cysts are seen within the cervix. The examination is otherwise unremarkable. 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 [employer] Female Reproductive History Menstrual Age of Menarche: 17 Review of Systems Const All systems reviewed & are unremarkable except as noted in HPI and below Reports as per HPI and Reports no additional complaints GI Reports no additional complaints Reports no additional complaints Physical Exam Vital Signs: Last Vital Signs BP 130/88 02/06/24 11:55 BMI result Body Mass Index 39.5 Assessment & Plan Assessment & Plan (1) Abnormal uterine bleeding (AUB): Code(s): N93.9 - Abnormal uterine and vaginal bleeding, unspecified Category: Medical Plan: Discussed with the patient the results of the work up done and options of treatment including Lysteda, BCP's, Mirena IUD, endometrial ablation and hysterectomy. All pros, cons, risks and benefits if each option was discussed with the patient and the patient decided to think about it and get back to us. Instructions given the patient to schedule a 2 month follow-up appointment. All questions answered the patient verbalized understanding. (2) Mammogram abnormal: Comment: BIRADS 4 Left side Code(s): R92.8 - Other abnormal and inconclusive findings on diagnostic imaging of breast Category: Medical Plan: Discussed with the patient the results the mammogram left-sided BI-RADS 4, although no reports available according to her Health Portal report needs biopsy, referral to general surgery placed. Appointment scheduled on 02/[address] Glover, the patient is aware and understands the urgency of the clinical situation and agreed with the plan Orders: Referrals General Surgery Referral R92.8 - Other abnormal and inconclusive findings on diagnostic imaging of breast Coding Level of Care Code Est Pt Level 3 (39716) Diagnoses Abnormal uterine bleeding (AUB) N93.9 Mammogram abnormal R92.8
== END 2024-02-06 12:25 | disposition home or self-care (01) ==
LOC: HO.HWS 11:53
PROVIDERS: PCP Family Medicine; Visit Provider Obstetrics & Gynecology
DX: N93.9 Abnormal uterine and vaginal bleeding, unspecified (principal); R92.8 Other abnormal and inconclusive findings on diagnostic imaging of breast
CPT/HCPCS: 99213

== ENCOUNTER → 2024-02-06 11:52 | Outpatient (BNVA) | payer OTHER, SELFPAY | PROVIDERS: PCP Family Medicine; Visit Provider Obstetrics & Gynecology ==

== ENCOUNTER 2024-02-14 13:19 | Outpatient (AMB) | payer OTHER, SELFPAY ==
--- NOTE | 2024-02-14 13:20 | A.OFFVIS_ITS ---
Vital Signs 02/14/24 13:29 Height 5 ft 6 in Weight 248 lb 8 oz BMI 40.1 BP 147/80 H Blood Pressure Location Lt brachial Position Sitting Pulse 88 Intake Visit Reasons: Suspicious birads left breast Intake Note: Patient is seen in office for evaluation of the left breast. Pt c/o:had mm & ultrasound done and was advice to have an aspiration/bx, does not feel a lump or any prior hx of breast surgeries or concerns, no fm hx of breast cancer mm:06/01/23 (lindy) Public Relations Senior Associate Required: No Park Interpretive Ranger: Park Interpretive Ranger Present Accompanied by: Self / Same As Patient Allergies Environmental Allergy (Unknown, Uncoded 02/06/24 11:55) per allergy testing shrimp Allergy (Unknown, Uncoded 02/06/24 11:55) anaphylaxis Medication List - Last Reconciled 02/14/24 by Edgar Glover MD albuterol sulfate 90 mcg/actuation (ProAir HFA) inhalation galcanezumab-gnlm (Emgality Pen) mg subcut levocetirizine 5 mg PO DAILY montelukast 10 mg PO DAILY naproxen 500 mg PO BID omeprazole 20 mg PO DAILY sumatriptan succinate mg PO HPI Comments Details: 48-year-old female patient presenting for breast examination following a mammogram and ultrasound performed at [facility] on 06/01/2023. This revealed a suspicious lesion in the left breast at the 1 o'clock position approximately 4 cm from the nipple measuring 1 x 0.7 x 1 cm. This was felt to be possibly a cyst although not clearly a cyst by ultrasound. Ultrasound-guided core biopsy was recommended. Because of several changes in her primary care she presents today for further evaluation of this suspicious lesion. She denies a previous history of breast problems or breast surgery. She does occasionally have some discomfort in the breast but denies any palpable mass, skin change, nipple discharge, or enlarged lymph nodes. Her family history is negative for breast cancer. She is 3 para 3 and she breastfed for a short period of time. She denies a history of breast trauma or breast infections. 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 [employer] Female Reproductive History Menstrual Age of Menarche: 17 Date of last menstrual period: 01/31/24 Total pregnancies: 3 Number of Living Children: 3 Review of Systems Const All systems reviewed & are unremarkable except as noted in HPI and below Physical Exam Vital Signs: Last Vital Signs Pulse 88 02/14/24 13:29 BP 147/80 H 02/14/24 13:29 BMI result Body Mass Index 40.1 Const General: cooperative and no acute distress Nutritional Appearance: well nourished Orientation/consciousness: patient oriented x3 Limitations: no limitations HEENT Head: Yes normocephalic and Yes atraumatic Ears: hearing grossly normal bilaterally Chest Other: Left breast: No skin change, no nipple retraction, no nipple discharge, no palpable mass, no enlarged lymph nodes. Right breast: No skin change, no nipple retraction, no nipple discharge, no palpable mass, no enlarged lymph nodes Resp Effort & Inspection: normal respiratory effort, no audible wheezes, no cough and no respiratory distress Cardio Jugular venous distension: no JVD GI Inspection: Yes normal to inspection Skin Other: Warm, dry, no rash Neuro General: patient oriented x3 Extrem General: Yes no clubbing, cyanosis or edema Assessment & Plan Assessment & Plan (1) Mammogram abnormal: Comment: BIRADS 4 Left side Code(s): R92.8 - Other abnormal and inconclusive findings on diagnostic imaging of breast Category: Medical (2) Abnormal ultrasound of breast: Code(s): R92.8 - Other abnormal and inconclusive findings on diagnostic imaging of breast Category: Medical Plan 48-year-old female patient presenting with an abnormal left breast mammogram and ultrasound with a suspicious lesion in the 1 o'clock position, 4 cm from the nipple. Ultrasound-guided core biopsy is recommended (BI-RADS 4A). Examination today revealed no palpable mass in either breast, and no other suspicious findings. I reviewed the recommendations in detail and the patient expressed understanding. She will be scheduled for an ultrasound-guided core biopsy at the [facility]. I recommended follow-up in approximately 1 week following the biopsy to review the pathology results. Orders: Orders US breast ndl core biopsy LT Today R92.8 - Other abnormal and inconclusive findings on diagnostic imaging of breast Coding Level of Care Code New Pt Level 4 (68830) Diagnoses Mammogram abnormal R92.8 Abnormal ultrasound of breast R92.8
[2024-02-14 13:29] VITALS: BP 147/80; PULSE 88; BMI 40.1
== END 2024-02-14 13:37 | disposition home or self-care (01) ==
PROVIDERS: PCP Family Medicine; Referring Provider Obstetrics & Gynecology; Visit Provider Surgery
DX: R92.8 Other abnormal and inconclusive findings on diagnostic imaging of breast (principal)
CPT/HCPCS: 99204

== ENCOUNTER 2024-03-21 07:47 | Outpatient (REF) | payer OTHER, SELFPAY ==
--- NOTE | ~2024-03-21 | US_ITS ---
EXAMINATION: US DIAGNOSTIC ULTRASOUND BREAST, LEFT CLINICAL INFORMATION: 48-year-old patient here for left breast ultrasound-guided core needle biopsy hypoechoic area is seen outside institution at 1:00 4 cm from the nipple in the left breast.. COMPARISON: Comparison is made with relevant prior imaging which is all from outside institution. TECHNIQUE: Ultrasound of the breast is performed with real-time rosado scale imaging and color Doppler. FINDINGS: Targeted color Doppler ultrasound scanning in the left breast at 1:00 in the entire upper outer quadrant demonstrates normal fibroglandular breast tissue. The previously seen hypoechoic area does not persist on today's imaging and only normal fibroglandular breast tissue was seen. The previously seen area could possibly represent the patient's rib or other incidental artifact. Results are discussed with the patient at time of visit. US/US breast LT limited IMPRESSION: Normal fibroglandular breast tissue. ASSESSMENT: BI-RADS 1: Negative RECOMMENDATION: Recommend yearly screening mammography. This patient's information was entered into a reminder system with a target due date for their next mammogram. Electronically signed by: Kendra Cortez DO 04/11/2024 08:11 AM CHRISTOPHER
--- OUTSIDE RECORDS SUMMARY | 2024-03-21 07:50 | XMS_ITS | Continuity of Care Document ---
Author Organization [facility] ter Address [address] [place] [id number]- Care Team Providers Care Technology Coach Name Role Phone Kae Og NP Primary Care Physician Encounter 03/12/24 - 03/13/[address] [id number] Attending Physician: Not on Staff, Attending MD Referring Physician: Not on Staff, Referring MD Encounter Type: SMRI Allergies, Adverse Reactions, Alerts No Known Medication Allergies Substance Criticality Severity Reaction Reaction Severity Status Shrimp Active Other Environmental Allergy Active Immunizations Given and Recorded Vaccine Date Status Refusal Reason influenza virus vaccine, inactivated 02/01/24 Tr rded influenza virus vaccine, inactivated 01/28/23 Tr rded influenza virus vaccine, inactivated 01/29/22 Tr rded tetanus/diphtheria/pertussis, acel(Tdap) 10/13/22 Recorded tetanus/diphtheria/pertussis, acel(Tdap) 07/28/11 Recorded SARS-CoV-2 (COVID-19) mRNA-1273 vaccine 03/29/21 R ecorded SARS-CoV-2 (COVID-19) mRNA-1273 vaccine 02/23/21 R ecorded Measles/Mumps/Rubella Virus Vaccine 08/23/16 Recor ded hepatitis B pediatric vaccine 08/23/16 Recorded hepatitis B pediatric vaccine 01/28/12 Recorded hepatitis B pediatric vaccine 08/27/11 Recorded hepatitis B pediatric vaccine 07/28/11 Recorded Medications Emgality Prefilled Pen 120 mg/mL subcutaneous solution 0 Refills, Maintenance, 12/28/23 1:48:00 PM EDT, Partial fill upon patient request if the prescription is for a schedule II opioid drug. Start Date: 12/28/23 Status: Ordered Repeat number: 1 levocetirizine 5 mg oral tablet 0 Refills, Maintenance, 12/28/23 1:47:00 PM EDT, Partial fill upon patient request if the prescription is for a schedule II opioid drug. Start Date: 12/28/23 Status: Ordered Repeat number: 1 naproxen 500 mg oral tablet 0 Refills, Maintenance, 12/28/23 1:48:00 PM EDT, Partial fill upon patient request if the prescription is for a schedule II opioid drug. Start Date: 12/28/23 Status: Ordered Repeat number: 1 omeprazole 20 mg oral enteric coated capsule 1 capsule = 20 mg, By Mouth, Daily, 0 Refills, Maintenance, 08/13/15 3:08:53 PM EDT Start Date: 08/13/15 Status: Ordered Repeat number: 1 Ozempic 2 mg/3 mL (0.25 mg or 0.5 mg dose) subcutaneous solution = 0.25 mg, Subcutaneous Injection, Every week, rotate injection sites, # 4 each, 0 Refills, Maintenance, 02/21/24 8:34:00 AM EST, Solution, [facility], Partial fill upon patient request if the prescription is for a schedule II opioid drug., 167.64, cm, 02/21/24 8:03:00 EST, Height, 113.6, kg, 02/21/24 8:03:00 EST, Dry Weight Start Date: 02/21/24 Status: Ordered Quantity: 4.0 Unit: each Repeat number: 1 Indication: Type 2 diabetes mellitus without complications ProAir HFA 90 mcg/inh inhalation aerosol with adapter 2 puffs, Inhalation, 4 times a day, 0 Refills, Maintenance, 06/25/14 4:43:11 PM EDT Start Date: 06/25/14 Status: Ordered Repeat number: 1 Singulair 10 mg oral tablet 1 tablet = 10 mg, By Mouth, Daily in PM, # 30 tablet, 0 Refills, Maintenance, 06/25/14 4:42:57 PM EDT, Tablet Start Date: 06/25/14 Status: Ordered Quantity: 30.0 Unit: tablet Repeat number: 1 SUMAtriptan 50 mg oral tablet 0 Refills, Maintenance, 12/28/23 1:48:00 PM EDT, Partial fill upon patient request if the prescription is for a schedule II opioid drug. Start Date: 12/28/23 Status: Ordered Repeat number: 1 Problem List Condition Confirmation Course Effective Dates Status H ealth Status Informant Asthma Confirmed Active Diverticulosis Confirmed Active LENNY on CPAP Confirmed Active Recurrent major depression in partial remission Confirmed Active Severe obesity Confirmed Active Sleep apnea Confirmed Active Fatty liver Confirmed Active Type 2 diabetes mellitus Confirmed Active Results Radiology Reports * Exam Date Time Procedure Performing Provider Status 03/12/24 8:31 AM MRI Abdomen W+W/O Contrast Auth (Verified) Notes: (MRI Abdomen W+W/O Contrast) Reason For Exam: LIVER MASS;LIVER MASS RESULT: MRI Abdomen W+W/O Contrast [facility] VISIT NUMBER :[id number] Patient Name: Mignon Georges Date of : 1975 Date of Exam: 03-12-2024 Referring Physician: Kae Og [facility] [address] [place] [address] Exam: MR Abdomen (C-/C+) CPT 49722 Room Description: [facility] 3.0T MR Abdomen (C-/C+) CPT 19521 CLINICAL INDICATION: LIVER MASS LIVER MASS Standard Department Protocol TECHNIQUE: Multiplanar, multisequence pre and post contrast MRI evaluation of the abdomen was performed. 24 cc of Dotarem gadolinium administered intravenously. COMPARISON: Ultrasound abdomen 12/12/2023 FINDINGS: LOWER THORAX: No pleural or pericardial effusion. LIVER: Normal contour and size. Normal parenchymal enhancement. No suspicious lesion. Mild hepatic steatosis as evidenced by loss of signal on opposed phase T1-weighted images. Estimated fat fraction of approximately 12.8%. There is faint areas of relative fat sparing abutting the effie hepatis and anterior margins of hepatic segments 5 and 6. GALLBLADDER: Normal. No gallstones or wall thickening. BILE DUCTS: No biliary ductal dilatation. SPLEEN: Normal. PANCREAS: Normal. No pancreatic ductal dilatation. ADRENAL GLANDS: No nodules. KIDNEYS: No hydronephrosis. Kidneys enhance symmetrically. No suspicious mass. STOMACH/UPPER GI TRACT: Stomach and visualized abdominal bowel normal in caliber. Small type I hiatal hernia. PERITONEUM AND RETROPERITONEUM: No loculated fluid collection or peritoneal mass. LYMPH NODES: No lymphadenopathy. VESSELS: Abdominal aorta is nonaneurysmal. Hepatic, portal and splenic veins patent. Visualized inferior vena cava unremarkable. ABDOMINAL WALL: Abdominal wall is unremarkable. Multiple nonenhancing T2 hyperintense cystic foci in the breast tissue bilaterally. BONES: Unremarkable. IMPRESSION: 1. No suspicious hepatic mass. 2. Mild hepatic steatosis. Faint fat sparing adjacent to the effie hepatis and anterior portions of hepatic segments 5 and 6, most likely accounting for the findings noted on recent ultrasound. 3. Small type I hiatal hernia. Electronically Signed By: Bryn Delgado MD Dictated By: Not on Staff , MINO NORTON Dictated Date/Time: 03/12/24 12:58 p Reviewed By: Not on Staff , MINO NORTON Signed By: Not on Staff , MINO NORTON Signed Date/Time: 03/12/24 12:58 pm Transcribed By: TS Transcribed Date/Time: 03/12/24 12:58 pm Social History Social History Type Response Smoking Status Never smoker entered on: 08/13/15 Sex Sex Representation Female (finding) Patient Care team information Care Team Personnel Name: Kae Og NP Position: [facility] PCO Associate Professional Member Role: PCP Address: [address] [place] [address]- Telecom: Care Team Related Persons Name: ISAIAS BARRETO Name: PAM GEORGES Name: STEPHANIE MORRISON Insurance Providers Guarantor name: [facility] Plan Information #: 1 Payer: [facility] PPO Member Number: NA Policy Number: NA Group Number: NA
== END 2024-03-21 07:48 | disposition home or self-care (01) ==
LOC: HO.MAMMO 07:47
PROVIDERS: PCP Nurse Practitioner Adult Health; Visit Provider Surgery
DX: R92.8 Other abnormal and inconclusive findings on diagnostic imaging of breast (principal)
CPT/HCPCS: 76642

== ENCOUNTER → 2024-03-21 08:00 | Outpatient (BNV) | payer OTHER, SELFPAY | PROVIDERS: PCP Nurse Practitioner Adult Health; Visit Provider Internal Medicine | DX: R92.322 Mammographic fibroglandular density, left breast (principal) | CPT/HCPCS: 76642 ==

== ENCOUNTER 2025-01-28 09:47 | Outpatient (AMB) | payer OTHER, SELFPAY ==
--- NOTE | 2025-01-28 09:59 | A.OFFVIS_ITS ---
Intake Visit Reasons: 6m Allergies Environmental Allergy (Unknown, Uncoded 01/28/25 10:04) per allergy testing shrimp Allergy (Unknown, Uncoded 01/28/25 10:04) anaphylaxis Medication List - Last Reconciled 01/28/25 by Jennifer Hsu CNP albuterol sulfate 90 mcg/actuation (ProAir HFA) inhalation galcanezumab-gnlm (Emgality Pen) mg subcut levocetirizine 5 mg PO DAILY montelukast 10 mg PO DAILY naproxen 500 mg PO BID PRN 30 days omeprazole 20 mg PO DAILY sumatriptan succinate mg PO HPI Comments Details: 49-year-old woman with asthma, anxiety, depression, and migraine headaches. She was doing okay. Migraines were better with Emgality, but she was getting few more headaches when it was almost time for the next dose. Cost of medication was less as three month supply. Sumatriptan as needed helps. Sleep was okay, using CPAP. 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 [employer] Female Reproductive History Menstrual Age of Menarche: 17 Review of Systems Const Denies chills, Denies daytime sleepiness, Denies difficulty sleeping, Reports fatigue, Denies fever(s), Denies frequent falls, Reports headache(s), Denies increased appetite, Denies poor appetite, Denies snoring, Denies weakness, Denies weight gain and Denies weight loss Eyes Denies loss of vision ENT Denies vertigo, Denies dizziness and Reports headache(s) Card Denies chest pain at rest, Denies chest pain with activity, Denies syncope, Denies leg edema and Denies palpitations Resp Denies snoring GI Denies constipation, Denies heartburn, Denies diarrhea and Denies nausea Denies urinary frequency, Denies urinary incontinence and Denies urinary urgency Musc Denies abnormal gait, Denies numbness and Denies tingling Skin/Breast Denies dry skin and Denies rash Neuro Denies abnormal gait, Denies vertigo, Denies dizziness, Denies syncope, Denies frequent falls, Reports headache(s), Denies lack of coordination, Denies loss of vision, Denies memory loss, Denies numbness, Denies restless legs, Denies seizure-like activity, Denies tingling, Denies paresthesias, Denies tremor(s) and Denies weakness Psych Denies anxiety, Denies depression, Denies auditory hallucinations, Denies memory loss, Denies visual hallucinations and Denies suicidal ideation Endo Reports fatigue and Denies palpitations Physical Exam Const Other: General Appearance:? normal, in no acute distress. Skin:? no rashes, no significant birthmarks. Heart:? S1, S2 normal, no murmurs. Lungs:? clear anteriorly and posteriorly. Extremities:? no edema. Psych:? alert, oriented, cognitive function intact, cooperative with exam. Neuro Other: Mental Status:?Normal attention, orientation, memory and affect.? Cranial Nerves:?Pupils are equal, round and reactive to light. External occular muscles are intact. Visual cobos are full. Face is symmetrical. Facial sensations are normal. Tongue is midline. Palate elevates symmetrically. Shoulder shrugging is normal. Hearing to bedside conversation is normal. Sensory Exam:?....? Coordination:?No ataxia,?no titubation.? Gait Exam: Within normal limits. Extrapyramidal System:?No tremor, rigidity with normal facial expressions.? Pronator Drift:?Not present.? Involuntary Movements:?No tremors seen.? Speech:?Normal.? Assessment & Plan Assessment & Plan (1) Migraine without aura: Code(s): G43.009 - Migraine without aura, not intractable, without status migrainosus Category: Medical Qualifiers: Status migrainosus presence: without status migrainosus Intractability: not intractable Qualified Code(s): G43.009 - Migraine without aura, not intractable, without status migrainosus Plan: Continue Emgality Solution Auto-Injector 20mg/mL subcutaneous monthly (3 month supply). Continue sumatriptan 50mg 1 tablet as needed for migraines. (2) White matter disease, unspecified: Code(s): R90.82 - White matter disease, unspecified Category: Medical Plan Meds tried: Amitriptyline (weight gain), topiramate (side effects), verapamil (ineffective), beta blockers contraindicated (asthma), depakote (ineffective) Medications: New sumatriptan succinate take 1 tab at onset of headache; if no relief may repeat 1 tab after at least 2 hrs; PO 10 tabs 5RF 30 days Changed From galcanezumab-gnlm (Emgality Pen) subcut To galcanezumab-gnlm (Emgality Pen) 120 mg subcut QMONTH 3 ea 1RF 90 days Discontinued sumatriptan succinate Discontinued Reason: Order PO Coding Level of Care Code Est Pt Level 4 (82277) Diagnoses Migraine without aura and without status migrainosus, not intractable G43.009 Status migrainosus presence: without status migrainosus Intractability: not intractable White matter disease, unspecified R90.82
--- OUTSIDE RECORDS SUMMARY | 2025-01-28 11:17 | XMS_ITS | Clinical Summary ---
Author Organization [address] Address [address] [place] [id number] Phone Care Team Providers Care Power Shovel Operator Name Role Phone Kory Biswas MD Primary Care Provider [phone] Medications montelukast (SINGULAIR) 10 mg tablet TAKE ONE TABLET BY MOUTH AT BEDTIME 90 tablet 02/08/2024 Active levocetirizine (XYZAL) 5 mg tablet TAKE ONE TABLET BY MOUTH EVERY EVENING 90 tablet 02/08/2024 Active ketotifen (ZADITOR) 0.025 % ophthalmic solution PLACE 1 DROP INTO BOTH EYES 2 TIMES A DAY 5 mL 02/08/2024 Active Surgical History Surgery Date Site/Laterality Comments CHOLECYSTECTOMY PROCEDURE: HISTORICAL CHOLECYSTECTOMY Medical History Medical History Date Comments Right upper quadrant pain DX:Rig ht upper quadrant pain Fatty liver DX:Fatty liver GERD (gastroesophageal reflux disease) DX:GERD (gastroesophageal reflux disease) Migraine DX:Migraine Elevated liver enzymes DX:Elevat ed liver enzymes Abnormal mammogram 06/01/2023 DX:Abnormal m ammogram; COMMENT: BIRADS 4, biopsy pending Family History Medical History Relation Name Comments Asthma Maternal Grandmother DM, HTN , multiple colon polyps Asthma Mother HTN Relation Name Status Comments Brother Murdered Daughter 1 Alive Healthy Daughter 2 Alive Healthy Father Alive Maternal Grandfather AIDs Maternal Grandmother Alive Mother Alive Sister 1 Alive asthma, Bipolar Sister 2 Alive Sister 3 Alive Son healthy Social History Tobacco Use Types Packs/Day Years Used Date Smoking Tobacco: Former Smokeless Tobacco: Never Alcohol Use Standard Drinks/Week Comments Yes 0 (1 standard drink = 0.6 oz pur e alcohol) Comments Unknown Sex and Gender Information Value Date Recorded Sex Assigned at Not on file Legal Sex Female 11:42 AM EST Gender Identity Not on file Sexual Orientation Not on file Obstetrics History Last Filed Vital Signs Vital Sign Reading Time Taken Comments Blood Pressure 116/78 10/15/2023 9:43 AM EDT L A rm Pulse 115 10/15/2023 9:43 AM EDT Temperature - - Respiratory Rate - - Oxygen Saturation - - Inhaled Oxygen Concentration - - Weight 111 kg (244 lb 9.6 oz) 01/31/2023 2:27 PM EDT Height 167.6 cm (5' 6 ) 01/31/2023 2:27 PM EDT Body Mass Index 39.48 01/31/2023 2:27 PM EDT Plan of Treatment Health Maintenance Due Date Last Done Comments Colorectal Cancer Screening: Colonoscopy 1977 Hepatitis A Vaccines (1 of 2 - Risk 2-dose series) 1996 Hepatitis B Vaccines (1 of 3 - 19+ 3-dose series) 1996 08/23/2016, 01/28/2012, 08/27/2011, Additional history exists Pneumococcal Vaccine: Pediatrics (0 to 5 Years) and At-Risk Patients (6 to 49 Years) (1 of 2 - PCV) 1996 Cervical Cancer Screening: Pap Smear 1998 HIV Screening 03/02/2022 Hepatitis C Screening 03/02/2022 Social Influencers of Health Screening 03/02/2022 Depression Screening 04/04/2024 COVID-19 Vaccine ( season) 2024 03/29/2021, 02/23/2021 Influenza Vaccine (#1) 2024 Hypertension/CHF/CAD Annual BMP Blood Test 12/11/2024 12/12/2023 Breast Cancer Screening 06/01/2025 06/01/2023, 05/09 Cholesterol Screening (Lipid Panel) 12/11/2028 12/12/2023 DTaP,Tdap,and Td Vaccines (3 - Td or Tdap) 10/13/2032 10/13/2022, 07/28/2011 RSV Immunization Adult Patients (1 - 1-dose 75+ series) 2052 MMR Vaccines Aged Out 08/23/2016 No longer eligi ble based on patient's age to complete this topic HIB Vaccines Aged Out No longer eligi ble based on patient's age to complete this topic HPV Vaccines Aged Out No longer eligi ble based on patient's age to complete this topic IPV Vaccines Aged Out No longer eligi ble based on patient's age to complete this topic Meningococcal ACWY Vaccine Aged Out N o longer eligible based on patient's age to complete this topic Meningococcal B Vaccine Aged Out No l onger eligible based on patient's age to complete this topic RSV Immunization Patients Under 20 months Aged Out No longer eligible based on patient's age to complete this topic Varicella Vaccines Aged Out No longer eligible based on patient's age to complete this topic Procedures Procedure Name Priority Date/Time Associated Diagnosis Comments DIAGNOSTIC MAMMOGRAPHY INCLUDING CAD BILATERAL Routine 06/01/2023 2:23 PM EST Other abnormal and inconclusive findings on diagnostic imaging of breast from Last 3 Months or Most Recently Relevant to Health Maintenance Results * DIAGNOSTIC MAMMOGRAPHY INCLUDING CAD BILATERAL (06/01/2023 2:23 PM EST) Anatomical Region Laterality Modality Mammography 05/10/2023 11:2 2 AM EST Narrative 06/01/2023 3:01 PM EST This is a summary report. The complete report is available in the patient's medical record. If you cannot access the medical record, please contact the sending organization for a detailed fax or copy. Bilateral diagnostic mammogram. Bilateral Limited targeted breast ultrasound. Spot compression views of both breast in the CC projections were obtained as well as spot compression view of the right breast and MLO projection and bilateral full- field straight lateral views all with 2D C views and tomosynthesis to follow 05/09/2023 examination. Breast tissue is heterogeneously dense limiting sensitivity of mammography. The circumscribed opacity in the retroareolar right breast was confirmed on the additional views. There is small density of concern and the upper right breast was also confirmed. The retroareolar density in the right breast measures 1.8 x 1.1 x 1.4 cm the asymmetric opacity in the left breast the density of concern in the posterior left breast laterally to the nipple axis was also confirmed on the additional views. Targeted ultrasound of the right breast. There is a clear cyst at 12:00, 1 cm from the nipple measuring 1.8 x 1.1 x 1.4 cm. It corresponds to the mammographic abnormality. Evaluation of the upper right breast revealed 2 small cystic lesions measuring 0.4 x 0.2 x 0.6 cm at 2:00, 5 cm from the nipple as well as 0.5 x 0.2 x 0.5 cm cystic lesion at 10:00, 6 cm from the nipple. The last 1 probably corresponds to the mammographic abnormality. Targeted ultrasound of the left breast. Evaluation of the area of concern in the left breast revealed a hypoechoic mass at 1:00, 4 cm from the nipple measuring 1 x 0.7 x 1 cm. It is located deep within the breast and could represent a cyst. However we were not able to clear the internal echoes. There is a small possible area of through-transmission and posterior enhancement. Considering that the lesion does not fulfill criteria for sclera cyst ultrasound-guided cyst aspiration or core biopsy if needed is recommended. Mammographic and ultrasonographic findings were explained to the patient. Appointment for ultrasound-guided FNA of the left breast lesion is recommended. RIGHT breast: BI-RADS 2, benign findings. Left breast: BI-RADS 4A, low suspicion for malignancy. Biopsy is recommended. Procedure Note Debi Wilder MD - 11/21/2023 This is a summary report. The complete report is available in thepatient's medical record. If you cannot access the medical record, pleasecontact the sending organization for a detailed fax or copy. Bilateral diagnostic mammogram. Bilateral Limited targeted breastultrasound. Spot compression views of both breast in the CC projections were obtainedas well as spot compression view of the right breast and MLO projectionand bilateral full- field straight lateral views all with 2D C views andtomosynthesis to follow 05/09/2023 examination. Breast tissue isheterogeneously dense limiting sensitivity of mammography. The circumscribed opacity in the retroareolar right breast was confirmedon the additional views. There is small density of concern and the upperright breast was also confirmed. The retroareolar density in the rightbreast measures 1.8 x 1.1 x 1.4 cm the asymmetric opacity in the leftbreast the density of concern in the posterior left breast laterally tothe nipple axis was also confirmed on the additional views. Targeted ultrasound of the right breast. There is a clear cyst at 12:00, 1 cm from the nipple measuring 1.8 x 1.1 x1.4 cm. It corresponds to the mammographic abnormality. Evaluation ofthe upper right breast revealed 2 small cystic lesions measuring 0.4 x 0.2x 0.6 cm at 2:00, 5 cm from the nipple as well as 0.5 x 0.2 x 0.5 cmcystic lesion at 10:00, 6 cm from the nipple. The last 1 probablycorresponds to the mammographic abnormality. Targeted ultrasound of the left breast. Evaluation of the area of concern in the left breast revealed a hypoechoicmass at 1:00, 4 cm from the nipple measuring 1 x 0.7 x 1 cm. It islocated deep within the breast and could represent a cyst. However wewere not able to clear the internal echoes. There is a small possiblearea of through-transmission and posterior enhancement. Considering thatthe lesion does not fulfill criteria for sclera cyst ultrasound-guidedcyst aspiration or core biopsy if needed is recommended. Mammographic and ultrasonographic findings were explained to the patient.Appointment for ultrasound-guided FNA of the left breast lesion isrecommended. RIGHT breast: BI-RADS 2, benign findings. Left breast: BI-RADS 4A, low suspicion for malignancy. Biopsy isrecommended. Martha Bolton NP IMG BI PROCEDURES Final Result from Last 3 Months or Most Recently Relevant to Health Maintenance Insurance [facility] Care Teams Power Shovel Operator Relationship Specialty Start Date End Date Kory Biswas MD [address] [place] [id number] PCP - General 03/18/21
--- OUTSIDE RECORDS SUMMARY | 2025-01-28 11:17 | XMS_ITS ---
Author Name [facility] Organization Unknown Care Team Organization Name Specialty Phone Email Start Date End Da te [facility] Kory Biswas Primary Care 02/09/20222023
== END 2025-01-28 10:13 | disposition home or self-care (01) ==
LOC: HO.HSM 09:47
PROVIDERS: PCP Family Medicine; Referring Provider Internal Medicine; Visit Provider Registered Nurse
DX: G43.009 Migraine without aura, not intractable, without status migrainosus (principal); R90.82 White matter disease, unspecified
CPT/HCPCS: 99214